=== PATIENT | male | born 1970 | race Caucasian/White ===

== ENCOUNTER 2022-04-13 21:43 | Emergency (ER) | payer BC, OTHER ==
[~2022-04-13] VITALS: Ht 172.7 cm; Wt 83.9 kg
[2022-04-13 22:12] VITALS: BP_SYST 199
--- NOTE | 2022-04-13 22:12 | NUR ---
Patient came in to the Emergency department with complains of high blood pressure at home all day, SBP's 190's. Patient took his Hydralazine 10 mg PO 2 hours ago. Patient reports nausea, feeling tired and weak. Patient denies any pain, no shortness of breath. Patient history of Hypertension, Polycystic kidney disease and Psoriasis. He also take Lisinopril 40 mg daily. Will continue to monitor, awaiting bed assignment.
[2022-04-13] MEDS ORDERED: LISI40TA13 PO (22:16)
[2022-04-13] MEDS ORDERED: HYDR-4037 PO (22:17)
--- NOTE | 2022-04-13 22:17 | NUR ---
Patient triaged and placed in waiting room. VS checked and patient appears in no acute distress at this time. Accompanied by family, awaiting available bed, and MD notified of need for MSE.
--- NOTE | 2022-04-13 22:41 | NUR ---
Patient ambulatory to bed 1 for evaluation and treatment.
--- NOTE | 2022-04-13 23:01 | NUR ---
ER at bedside examining patient.
[2022-04-13 23:25] LABS: ANION GAP 9 (5-15); CALCIUM 10.1 mg/dL (8.4-11.0); CHLORIDE 101 mmol/L (98-107); CREATININE 1.24 mg/dL (0.55-1.30); GLUCOSE 104 mg/dL (70-99); POTASSIUM 3.8 mmol/L (3.5-5.1); UREA NITROGEN, BLOOD 9 mg/dL (8-21)
[2022-04-13 23:27] LABS: MEAN CORPUSCULAR VOLUME 89 fL (79.0-98.0); WHITE BLOOD COUNT (AUTO) 6.1 K/uL (4.8-10.8)
[2022-04-13 23:45] LABS: GFR AFRICAN AMERICAN 79 mL/min (>90)
[2022-04-13 23:47] LABS: BASOPHILS % (AUTO) 0.5 % (0.0-2.0); EOSINOPHILS # (AUTO) 0.2 K/uL (0.0-0.4); EOSINOPHILS % (AUTO) 3.3 % (0.0-4.0); HEMATOCRIT 37.8 % (36-54); LYMPHOCYTES # (AUTO) 1.1 K/uL (1.0-5.5); LYMPHOCYTES % (AUTO) 17.9 % (20.5-51.5); MONOCYTES # (AUTO) 0.6 K/uL (0.0-1.0); MONOCYTES % (AUTO) 9.1 % (1.7-9.3); NEUTROPHILS # (AUTO) 4.2 K/uL (1.8-7.7); NEUTROPHILS % (AUTO) 69.2 % (40.0-70.0); PLATELET COUNT (AUTO) 189 K/uL (130-430); RED BLOOD CELL COUNT(AUTO) 4.27 MIL/uL (4.2-6.2); RED CELL DISTRIBUTION WIDTH 13.5 % (9.0-15.0)
[2022-04-14 01:02] VITALS: BP_SYST 162
--- NOTE | 2022-04-14 01:02 | NUR ---
Patient given written and verbal discharge instructions and verbalizes understanding. ER MD discussed with patient the results and treatment provided. Patient in stable condition. ID arm band removed. No Rx given. Patient educated on pain management and to follow up with PMD. Pain Scale 0/10 Opportunity for questions provided and answered.
== END 2022-04-14 01:02 | disposition home or self-care (01) ==
LOC: SED 21:43
DX: I10 Essential (primary) hypertension (principal); R06.02 Shortness of breath; Z79.899 Other long term (current) drug therapy
CPT/HCPCS: 36415; 71045; 80048; 84484; 85025; 93005; 99285